=== PATIENT | male | born 1960 | race Caucasian/White ===

== ENCOUNTER → 2020-12-17 | Outpatient (CLI) | payer OTHER ==
[2017-06-15 18:00] VITALS: BP 137/83
[~2020-12-17] MED LIST: ASPI-630 PO; CARV3.1210 PO; ERGO500027 PO; LIDOCAINE WITH 8.4% SOD BICARB 3 ML DISP.SYRIN. ONE; NIAC1000 PO; RAMI2.5C41 PO; REGADENOSON 0.4 MG/5 ML DISP.SYRIN. IV ONE; SIMV40TA18 PO
--- NOTE | 2020-12-17 12:38 | RAD ---
MR#: [id number] Date of Study: 12/17/2020 Ordering Physician: CATHIE NICOLAS, Referring Physician: JOHN MUJICA Tech: RT Devi (R) (N) APPROVED REPORT Test Type: Pharmacological Stress Nurse/Tech: Shannan Elliott R.N. Test Indications: CAD Cardiac History: [place], stent 2008 Medications: see EHR Medical History: See Electronic Medical Record Resting ECG: SB w/ inverted T wave in lead AVL Resting Heart Rate: 59 bpm Resting Blood Pressure: 142/78mmHg Pretest Chest Pain: No chest pain Nurse/Tech Notes S1S2, lungs CTA Consent: The procedure was explained to the patient in lay terms. Informed consent was witnessed. Dean eout was entered into [email or web address]. History and Stress Test performed by RT Sydney (R) (N) Pharm. Details Pharmacologic stress testing was performed using 0.4mg per 5ml of regadenoson given intravenously ove r 7-10 seconds. Stress Symptoms stomach aches POST EXERCISE Reason for Termination: Infusion complete Max HR: 95 bpm Max Blood Pressure: 141/75mmHg Blood Pressure response to exercise: Normal blood pressure response during stress. Heart Rate response to exercise: wnl Chest Pain: No. Arrhythmia: No. ST Change: No. INTERPRETATION Stress EKG Conclusion: No evidence of stress induced EKG changes. Imaging Protocol IMAGE PROTOCOL: Rest Tc-99m/stress Tc-99m 1 day Rest: Stress: Viability: Radiopharm.Tc99m NjjogsusgFh35s Sestamibi Yvic73nRe 31mCi Duration 13min. 13min. Img Date 12/17/2020 12/17/2020 Inj-Img Zbmr74hog. 90min. Rest Admin Site:Tail Edger:RT Agustin GrimesR)(N) Stress Admin Site: Tail Edger: COMPA Hurtado, ARRT (R)(N) STRESS DATA End Diast. Vol.154.0mlLVEDV index BSA74.0ml End Syst. Vol.86.0mlLVESV index BSA41.0ml Myocardial Htfu971.0gEject. Zfwhaski68.0% Stress Scores Regional WT2.00Summed WT25.00 Regional WM1.00Summed WM22.00 LV Perfusion There is a large size basal to distal anteroseptal and anterior wall fixed perfusion defect consisten t with prior LAD territory infarct. There is a moderate sized basal to mid inferior wall fixed defec t consistent with prior infarct. Wall Motion Moderate LV dysfunction with ejection fraction of 45% and global hypokinesis LV Perf. Quant 17 Seg. SSS17.00 17 Seg. SRS19.00 17 Seg. SDS2.00 Stress Defect Extent (% LAD)73.80Rest Defect Extent (% LAD)65.60Rev. Defect Extent (% LAD)11.30 Stress Defect Extent (% LCX) 0.00Rest Defect Extent (% LCX)0.00Rev. Defect Extent (% LCX)0.00 Stress Defect Extent (% RCA)6.70Rest Defect Extent (% RCA)53.30Rev. Defect Extent (% RCA)0.00 Stress Defect Extent (% BOBBY)36.30Rest Defect Extent (% BOBBY)44.80Rev. Defect Extent (% BOBBY)4.60 Other Information Quality:Average Risk Assessment: Moderate-High Risk Conclusion 1. No evidence of stress-induced EKG changes 2. Large fixed anterior and inferior defects consistent with prior infarct without active ischemia 3. Moderate LV dysfunction, EF 44% 4. Moderate to high risk for future cardiovascular events Signed by : Artemio Flores, Electronically Approved : 12/17/2020 12:37:47
--- NOTE | 2020-12-18 10:00 | CARD ---
MR#: [id number] Date of Study: 12/17/2020 Ordering Physician: CATHIE NICOLAS, Referring Physician: CATHIE NICOLAS, Tech: Clau Funes, [facility] APPROVED REPORT EXAM: Two-dimensional and M-mode echocardiogram with Doppler and color Doppler. Other Information Quality : AverageHR: 61bpm INDICATION Cardiac Disease: CAD 2D DIMENSIONS RVDd3.4 (2.9-3.5cm)Left Atrium(2D)3.6 (1.6-4.0cm) IVSd1.0 (0.7-1.1cm)Aortic Root(2D)3.3 (2.0-3.7cm) LVDd5.1 (3.9-5.9cm)LVOT Diameter2.1 (1.8-2.4cm) PWd1.0 (0.7-1.1cm)LVDs4.4 (2.5-4.0cm) FS (%) 12.3 %SV32.2 ml LVEF(%)36.4 (>50%) Aortic Valve AoV Peak Josh.129.8cm/sAoV VTI27.5cm AO Peak GR.6.7mmHgLVOT Peak Josh.106.1cm/s LVOT VTI 23.43cmAO Mean GR.4mmHg DERRICK (VMAX)2.70eo6CRD (VTI)2.91cm2 Mitral Valve MV E Byendoqs00.8cm/sMV DECEL XZUN585pm MV A Nndtgbvo75.7cm/sMV WNN008hp E/A Ratio1.0MVA (PHT)1.89cm2 TDI E/Lateral E'6.0E/Medial E'6.6 Pulmonary Valve PV Peak Kkctkryr704.0cm/sPV Peak Grad.5mmHg Tricuspid Valve TR P. Nwvfewws611wa/sRAP ZIUYZTWI3xxAp TR Peak Gr.58reMcEEGZ10rtIr Pulmonary Vein S1 Ugnjjnkq62.9cm/sD2 Kkqbitge45.2cm/s PVa ztuycixm70cacr LEFT VENTRICLE The left ventricle is normal size. There is normal left ventricular wall thickness. The systolic func tion is mild to moderately impaired. The Ejection Fraction is 40%. The mid to distal inferoseptum and apex are moderate to severely hypokinetic. The remainder of the LV is mildly hypokinetic. Septal mot ion suggestive of conduction defect. Transmitral Doppler flow pattern is Grade II-pseudonormal fillin g dynamics. RIGHT VENTRICLE The right ventricle is normal size. There is normal right ventricular wall thickness. The right ventr icular systolic function is normal. ATRIA The left atrium size is normal. The right atrium size is normal. The interatrial septum is intact wit h no evidence for an atrial septal defect or patent foramen ovale as noted on 2-D or Doppler imaging. AORTIC VALVE The aortic valve is normal in structure and function. Doppler and Color Flow revealed no significant aortic regurgitation. There is no significant aortic valvular stenosis. Calculated aortic valve area is 2.89 cm2 with maximum pressure gradient of 8 mmHg and mean pressure gradient of 4 mmHg. MITRAL VALVE The mitral valve is normal in structure and function. There is no evidence of mitral valve prolapse. There is no mitral valve stenosis. Doppler and Color-flow revealed trace mitral regurgitation. TRICUSPID VALVE The tricuspid valve is normal in structure and function. Doppler and Color Flow revealed trace tricus pid regurgitation with an estimated PAP of 22 mmHg. There is no tricuspid valve stenosis. PULMONIC VALVE Doppler and Color Flow revealed no pulmonic valvular regurgitation. There is no pulmonic valvular raad nosis. GREAT VESSELS The aortic root is normal in size. The IVC is normal in size and collapses >50% with inspiration. PERICARDIAL EFFUSION There is no evidence of significant pericardial effusion. Critical Notification Critical Value: No <Conclusion> The systolic function is mild to moderately impaired. The Ejection Fraction is 40%. The mid to distal inferoseptum and apex are moderate to severely hypokinetic. The remainder of the LV is mildly hypokinetic. Septal motion suggestive of conduction defect. Signed by : Artemio Flores, Electronically Approved : 12/18/2020 10:00:02
== END ==
LOC: NM 09:25
PROVIDERS: ATTEND Internal Medicine Cardiovascular Disease
DX: I25.10 Atherosclerotic heart disease of native coronary artery without angina pectoris (principal); I25.2 Old myocardial infarction
CPT/HCPCS: 78452; 93017; 93306; A9500; J2785